=== PATIENT | male | born 1985 | race Caucasian/White ===

== ENCOUNTER 2020-12-18 15:13 | Emergency (ER) | payer OTHER ==
[~2020-12-18] VITALS: Ht 188 cm; Wt 94.0 kg
[2020-12-18 15:21] VITALS: BP 144/76
--- NOTE | 2020-12-18 15:34 | PHYS DOC ---
Past History Past Surgical History: Other Additional Past Surgical Histo: left, right knee, hernia x3, lumber fusion Alcohol Use: Rarely Adult General Chief Complaint Chief Complaint: ABDOMINAL PAIN [facility] HPI Patient is a 35-year-old male presenting for right lower quadrant pain. Onset was 30 hours ago without any known inciting event, trauma, ingestion or known mechanism of injury. Standing up makes better, certain positional movements and palpation make worse. Pain is focal to right lower quadrant although patient does admit that initial pain was near her bellybutton and migrated over to his right lower quadrant region. He is otherwise been eating and drinking fine with last p.o. intake 0800 hrs. he has no known medical issues, on no medications daily, no prior intra-abdominal abnormalities. Patient states that he woke up today and ongoing symptoms prompted him to call local primary care physician who advised him to seek care at local ER. Reports he had several tests performed at urgent care such as heel strike and obturator signs which were positive prompting their concern for potential appendicitis and so, patient was sent to our facility for formal evaluation Review of Systems Review of Systems Fourteen body systems of review of systems have been reviewed. See HPI for pertinent positives and negative responses, other ricketts all other systems are negative, non-pertinent or non-contributory Allergies Allergies Allergies Coded Allergies Type Severity Reaction Last Updated Verified No Known Drug Allergies 12/18/20 No Physical Exam Physical Exam Constitutional: Well developed, well nourished, no acute distress, non-toxic appearance. HENT: Normocephalic, atraumatic, bilateral external ears normal, oropharynx moist, no oral exudates, nose normal. Eyes: PERRLA, EOMI, conjunctiva normal, no discharge. Neck: Normal range of motion, no tenderness, supple, no stridor. Cardiovascular: Heart rate regular, sinus rhythm, no murmurs rubs or gallops Lungs & Thorax: Bilateral breath sounds clear to auscultation Abdomen: Bowel sounds normal, soft, tenderness present to right lower quadrant with positive McBurney sign, guarding present but no rebound, no masses, no pulsatile masses. Nonacute abdomen Skin: Warm, dry, no erythema, no rash. Back: No tenderness, no CVA tenderness. Extremities: No tenderness, no cyanosis, no clubbing, ROM intact, no edema. Neurologic: Alert and oriented X 3, grossly normal motor & sensory function, no focal deficits noted. Psychologic: Affect normal, judgement normal, mood normal. Current Patient Data Vital Signs Vital Signs Date Time Temp Pulse Resp B/P (MAP) Pulse Ox O2 Delivery O2 Flow Rate FiO2 12/18/20 15:21 98.1 62 16 144/76 (98) 100 Room Air Lab Results Laboratory Tests Test 12/18/20 15:34 12/18/20 16:23 White Blood Count 4.0 x10^3/uL Red Blood Count 5.31 x10^6/uL Hemoglobin 16.1 g/dL Hematocrit 46.2 % Mean Corpuscular Volume 87 fL Mean Corpuscular Hemoglobin 30 pg Mean Corpuscular Hemoglobin Concent 35 g/dL Red Cell Distribution Width 12.4 % Platelet Count 191 x10^3/uL Neutrophils (%) (Auto) 48 % Lymphocytes (%) (Auto) 42 % Monocytes (%) (Auto) 9 % Eosinophils (%) (Auto) 1 % Basophils (%) (Auto) 1 % Neutrophils # (Auto) 1.9 x10^3uL Lymphocytes # (Auto) 1.7 x10^3/uL Monocytes # (Auto) 0.3 x10^3/uL Eosinophils # (Auto) 0.0 x10^3/uL Basophils # (Auto) 0.0 x10^3/uL Sodium Level 139 mmol/L Potassium Level 3.7 mmol/L Chloride Level 100 mmol/L Carbon Dioxide Level 31 mmol/L Anion Gap 8 Blood Urea Nitrogen 14 mg/dL Creatinine 1.1 mg/dL Estimated GFR (Cockcroft-Gault) 76.2 BUN/Creatinine Ratio 13 Glucose Level 99 mg/dL Calcium Level 9.6 mg/dL Total Bilirubin 0.7 mg/dL Aspartate Amino Transf (AST/SGOT) 25 U/L Alanine Aminotransferase (ALT/SGPT) 47 U/L Alkaline Phosphatase 69 U/L Total Protein 7.6 g/dL Albumin 4.6 g/dL Albumin/Globulin Ratio 1.5 Urine Collection Type Clean catch Urine Color Yellow Urine Clarity Clear Urine pH 6.5 Urine Specific Eure 1.015 Urine Protein Neg Urine Glucose (UA) Neg mg/dL Urine Ketones (Stick) Neg mg/dL Urine Blood Neg Urine Nitrite Neg Urine Bilirubin Neg Urine Urobilinogen Dipstick 0.2 mg/dL Urine Leukocyte Esterase Neg Urine RBC 0 /HPF Urine WBC 0 /HPF Urine Bacteria 0 /HPF EKG EKG [] Radiology/Procedures Radiology/Procedures Axial noncontrast CT imaging of the abdomen pelvis was obtained. Coronal and sagittal reformats. No oral contrast. Coronal and sagittal reformats are available. INDICATION: Right lower quadrant pain. FINDINGS: The lung bases are clear. The heart is not enlarged. Limited evaluation of solid organs without intravenous contrast. Noncontrasted liver, gallbladder adrenals kidneys are unremarkable in appearance. Pancreas is not well evaluated. Spleen is slightly enlarged measuring 13 cm. The stomach, small and large bowel are nondistended. No evidence pathologic wall thickening. The appendix is visualized and is unremarkable in appearance. No free air or fluid. There are multiple dilated vasculature structures the pelvis surrounding the bladder and prostate. Bony structures are unremarkable in appearance. Patient status post posterior fusion of L4 and L5 with intervertebral disc spacer. Mild anterolisthesis of L4 on L5. IMPRESSION: 1. 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 Electronically signed by: Elroy Muñiz MD (12/18/2020 3:53 PM) [facility] Heart Score C/O Chest Pain: No Risk Factors: Risk Factors: DM, Current or recent (<one month) smoker, HTN, HLP, family history of CAD, obesity. Risk Scores: Risk Factors: DM, Current or recent (<one month) smoker, HTN, HLP, family history of CAD, obesity. Course & Med Decision Making Course & Med Decision Making ABCs unremarkable HPI physical exam and comprehensive ER work-up nonconcerning for any emergent or surgical issues Radiologist interpretation of patient's CT abdomen pelvis questionable. As such, expert consultation with on-call vascular surgeon made who ultimately after reviewing images and patient case discussed no need for any emergent surgical intervention I reviewed entirety of ER findings with patient at length with good understanding. I discussed there is no indication for hospitalization or surgical intervention based on his comprehensive ER work-up today Strict return precautions were discussed with good understanding verbalized by patient. All questions and concerns addressed prior to ER departure Dragon Disclaimer Dragon Disclaimer This electronic medical record was generated, in whole or in part, using a voice recognition dictation system. Departure Departure: Impression: Primary Impression: RLQ abdominal pain Disposition: HOME / SELF CARE / HOMELESS Condition: STABLE Referrals: PCP,UNKNOWN (PCP) Patient Instructions: Abdominal Pain Additional Instructions: You have been evaluated in the Emergency Department today for abdominal pain. Your evaluation was not suggestive of any emergent condition requiring medical intervention at this time. However, some abdominal problems make take more time to appear. Therefore, it is important for you to watch for any new symptoms or worsening of your current condition. Your case and imaging studies were reviewed with a surgeon specialist who ultimately confirmed no need for emergent surgical intervention. As mentioned above, this might be an early presentation of pathology so close monitoring of symptoms and outpatient follow-up for repeat evaluation advised Return to the Emergency Department if you experience worsening pain, persistent fevers greater than 100.4, recurrent vomiting, blood in vomit, blood in stool, dark tarry stool, chest pain, difficulty breathing, or any other concerning symptoms. GOPAL LEY DO Dec 18, 2020 15:34
[2020-12-18 15:48] LABS: BASO % 1 % (0-3); EOS % 1 % (0-3); HEMATOCRIT 46.2 % (39.0-53.0); HEMOGLOBIN 16.1 g/dL (13.0-17.5); LYMPH # 1.7 x10^3/uL (1.0-4.8); LYMPH % 42 % (24-48); MEAN CORPUSCULAR HEMOGLOBIN 30 pg (25-35); MEAN CORPUSCULAR HGB CONC 35 g/dL (31-37); MEAN CORPUSCULAR VOLUME 87 fL (79-100); MONO # 0.3 x10^3/uL (0.0-1.1); MONO % 9 % (0-9); NEUT # 1.9 x10^3uL (1.8-7.7); NEUT % 48 % (31-73); PLATELET COUNT 191 x10^3/uL (140-400); RED BLOOD COUNT 5.31 x10^6/uL (4.30-5.70); RED CELL DISTRIBUTION WIDTH 12.4 % (11.5-14.5)
--- NOTE | 2020-12-18 15:55 | RAD ---
Axial noncontrast CT imaging of the abdomen pelvis was obtained. Coronal and sagittal reformats. No o ral contrast. Coronal and sagittal reformats are available. INDICATION: Right lower quadrant pain. FINDINGS: The lung bases are clear. The heart is not enlarged. Limited evaluation of solid organs without intravenous contrast. Noncontrasted liver, gallbladder adr enals kidneys are unremarkable in appearance. Pancreas is not well evaluated. Spleen is slightly enla rged measuring 13 cm. The stomach, small and large bowel are nondistended. No evidence pathologic wall thickening. The appe ndix is visualized and is unremarkable in appearance. No free air or fluid. There are multiple dilate d vasculature structures the pelvis surrounding the bladder and prostate. Bony structures are unremar kable in appearance. Patient status post posterior fusion of L4 and L5 with intervertebral disc space r. Mild anterolisthesis of L4 on L5. IMPRESSION: 1. Multiple dilated presumed venous structures of the sciatic venous plexus of unknown clinical signi ficance. Exposure: One or more of the following individualized dose reduction techniques were utilized for thi s examination: 1. Automated exposure control 2. Adjustment of the mA and/or kV according to patient size 3. Use of iterative reconstruction technique Electronically signed by: Elroy Muñiz MD (12/18/2020 3:53 PM) [facility]
[2020-12-18 15:56] LABS: CALCIUM 9.6 mg/dL (8.5-10.1); CREATININE 1.1 mg/dL (0.7-1.3); GFR 76.2; POTASSIUM 3.7 mmol/L (3.5-5.1)
[2020-12-18 16:02] LABS: ALBUMIN 4.6 g/dL (3.4-5.0); ALBUMIN/GLOBULIN RATIO 1.5 (1.0-1.7); TOTAL BILIRUBIN 0.7 mg/dL (0.2-1.0); TOTAL PROTEIN 7.6 g/dL (6.4-8.2)
[2020-12-18 16:47] LABS: BACTERIA,URINE 0 /HPF (0-FEW); BILIRUBIN,URINE NEG (NEG); CLARITY,URINE CLEAR; COLOR,URINE YELLOW; GLUCOSE,URINE NEG (NEG); NITRITE,URINE NEG (NEG); RBC,URINE 0 /HPF (0-2); UROBILINOGEN,URINE 0.2 mg/dL (0.2 mg/dL); WBC,URINE 0 /HPF (0-4)
== END 2020-12-18 16:46 | disposition home or self-care (01) ==
LOC: ER 15:13
DX: R10.31 Right lower quadrant pain (principal)
CPT/HCPCS: 36415; 74176; 80053; 81001; 85025; 99284-25